=== PATIENT | female | born 1970 | race Caucasian/White ===

== ENCOUNTER 2023-07-26 19:22 | Emergency (ER) | payer OTHER, SELFPAY ==
[2023-07-26] VITALS (40 sets, daily range): BP systolic 90–123; BP diastolic 59–84; PULSE 85–115; RESP 7–23; TEMP 36.8; O2SAT 73–100; BMI 27.3
--- NOTE | 2023-07-26 19:50 | XR_ITS ---
The [address] [address] Patient Name: LORENE RODRIGUEZ MRN: [id number] date: 1970 Sex: F Assigned Patient Location: ER Current Patient Location: ER Accession/Order Number: [id number] Exam Date: 07/26/2023 19:52 Report Date: 07/26/2023 20:14 At the request of: ARLETTE MARKER Procedure: XR chest 1V EXAM: XR chest 1V HISTORY: Shortness of breath. COMPARISON: Chest radiograph dated 03/01/[address] chest dated 02/28/2023. TECHNIQUE: AP erect portable chest radiograph performed. FINDINGS: The trachea is unremarkable. Moderate enlargement of the cardiac silhouette which is more prominent suggesting that there may be an enlarging pericardial effusion. There is a moderate right pleural effusion with associated compressive atelectasis. There is additional airspace disease at both lung bases, right greater than left. There is no pulmonary vascular congestion. There is no pneumothorax or acute osseous abnormality. XR/XR chest 1V IMPRESSION: Moderate enlargement of the cardiac silhouette which is more prominent suggesting that there may be an enlarging pericardial effusion. A CT examination of the chest is recommended. There is a moderate right pleural effusion with associated compressive atelectasis. There is additional airspace disease at both lung bases, right greater than left. Electronically authenticated by: KAREN CHAVEZ Date: 07/26/2023 20:14
--- NOTE | 2023-07-26 19:52 | ED_ITS ---
HPI - SOB/Dyspnea General Chief Complaint: Shortness of Breath/Dyspnea Stated Complaint: DENTAL PAIN, EDEMA Time Seen by Provider: 07/26/23 19:42 Source: patient Mode of arrival: walk-in Limitations: no limitations History of Present Illness HPI Narrative: 52-year-old female with a history of tobacco use, chronic obstructive pulmonary disease and congestive heart failure who is on 80 mg of Lasix daily presents for evaluation of 3 weeks of increasing generalized swelling and shortness of breath. The patient continues to smoke but states that she has only smoked 2 packs of cigarettes in the past month. She has not had a fever. She was recently scheduled to have a cardiac catheterizaation but could not find anybody to drive her to the appointment so it was canceled. She also has several broken teeth on the right and left side of her mandible. She denies any mainor chest pain. She denies any nausea vomiting or diarrhea. She has not recently had a fever. Related Data Home Medications Medication Instructions Recorded Confirmed fluticasone fur. 200 mcg-umeclid 1 inh inhalation Q24H 07/26/23 07/26/23 62.5 mcg-vilant 25 mcg inhalat.powder (Trelegy Ellipta) furosemide 40 mg tablet 40 mg PO Q12H 07/26/23 07/26/23 Allergies Allergy/AdvReac Type Severity Reaction Status Date / Time No Known Drug Allergies Allergy Verified 07/26/23 19:35 Review of Systems ROS Status of ROS 10 or more systems reviewed and unremarkable except as noted in history and below PFSH PFSH Social History Smoking status: Current every day smoker Exam Narrative Exam Narrative: Nurses note and vital signs reviewed; She is afebrile, tachycardic with a pulse of 111, blood pressure is normal but she is hypoxic with pulse ox of 76 percent on room air General: Alert, flushed, nontoxic, dyspneic adult female, she has 3 to four word conversational dyspnea Skin: Legs are erythematous and warm to the touch Head: Normocephalic, atraumatic Eye: Normal conjunctiva, no drainage, EOMI. PERRL Ears, Nose, Mouth, and Throat: oral mucosa is moist. Dentition is generally poor with several broken teeth in the right mandible and left mandible, no sign of necrotizing gingivitis Neck: Positive JVD Cardiovascular: Regular Rate and Rhythm S1S2, No murmurs rubs or gallops appreciated Respiratory: Conversational dyspnea with scattered expiratory wheezing and bibasilar rales Back: non-tender, no CVA tenderness bilaterally to percussion. GI: Normal bowel sounds, no tenderness to palpation, no masses appreciated. No rebound, guarding, or rigidity noted. Musculoskeletal: Pitting edema is present from the feet to the mid back including the mons pubis, abdominal wall and back Neurological: A&O x4, normal speech Psychiatric: Cooperative Constitutional Vital Signs, click to edit/add: Last Vital Signs Temp 98.2 F 07/26/23 19:26 Pulse 77 07/27/23 06:10 Resp 12 07/27/23 06:10 BP 95/59 07/27/23 05:30 Pulse Ox 100 07/27/23 06:10 O2 Del Method Room Air 07/26/23 19:45 O2 Flow Rate 4 07/26/23 21:52 Course Vital Signs Vital signs: Vital Signs Temperature 98.2 F 07/26/23 19:26 Pulse Rate 111 H 07/26/23 19:26 Respiratory Rate 16 07/26/23 19:26 Blood Pressure 101/70 07/26/23 19:26 Pulse Oximetry 76 L 07/26/23 19:26 Oxygen Delivery Method Room Air 07/26/23 19:26 Temperature 98.2 F 07/26/23 19:26 Pulse Rate 77 07/27/23 06:10 Respiratory Rate 12 07/27/23 06:10 Blood Pressure 95/59 07/27/23 05:30 Pulse Oximetry 100 07/27/23 06:10 Oxygen Delivery Method Room Air 07/26/23 19:45 Oxygen Delivery Flow Rate 4 07/26/23 21:52 MDM - SOB/Dyspnea MDM Narrative Medical decision making narrative: This 52-year-old female with a history of congestive heart failure and chronic obstructive pulmonary disease who does wear home oxygen on occasion dense for evaluation of 3 weeks of increasing shortness of breath and fluid retention. She has pitting edema from her feet to her mid back. She has JVD. She denies any chest pain. On arrival she was noted really tachycardic with pulse ox in the 70s. She explained to the nurses that she does have oxygen that she wears at home but does not have any portable oxygen. She was taken to room 10 and placed on a monitoring analyst. EKG was a sinus ta chycardia with an incomplete right bundle-branch block. She was noted to have JVD as well as faint bibasilar rales. An IV was established and she was given 40 mg of IV Lasix. Routine labs were ordered and are reviewed. She has a normal white count and hemoglobin. Normal troponin. Her BUN and creatinine are mildly elevated at 38 and 1.52. Her BNP was elevated at 7753. COVID 19 testing was negative. Chest x-ray showed some compressive atelectasis and pleural effusion as well as cardiomegaly with concern for a developing pericardial effusion with recommendation for a CT scan of the chest. CT scan of the chest confirms the diagnosis of pericardial effusion. The patient has remained hemodynamically stable in the emergency department. She was given a 500 mL IV fluid bolus despite the fluid overload due to the diagnosis of pericardial effusion. The patient requests to be transferred to [facility] . The case was discussed with Dr Coello, hospitalist who spoke to the cut press operator who suspects she will need a pericariocentesis that can be performed at [facility] and she is accepted for transfer. There was an extended period of time waiting for transportation for this patient. She has been monitored overnight and has been sleeping and comfortable without hypoxia or complaint of pain. Her blood pressure has remained stable. She was made aware of the delay in transportation and was understanding of this fact. Medical Records Medical records narrative: [place] [address] CT Scan Report Signed Patient: LORENE RODRIGUEZ MR#: [id number] : 1970 Acct:[id number] Age/Sex: 52 / F ADM Date: 07/26/23 Loc: ER Attending Dr: Ordering Physician: Taty Telles Date of Service: 07/26/23 Procedure(s): CT chest w con Accession Number(s): [id number] cc: Physician,Non-Staff Mercedes~ The [address] [address] Patient Name: LORENE RODRIGUEZ MRN: [id number] date: 1970 Sex: F Assigned Patient Location: ER Current Patient Location: ER Accession/Order Number: [id number] Exam Date: 07/26/2023 20:50 Report Date: 07/26/2023 21:51 At the request of: TATY MARI Procedure: CT chest w con EXAM: CT chest w con HISTORY: pericardial effusion COMPARISON: Multiple priors, most recent Chest x-ray 07/26/2023, CT chest 02/28/2023 TECHNIQUE: Multiple axial views CT chest after administration of IV contrast. Coronal sagittal reformats. FINDINGS: Diffuse pericardial effusion measuring up to 2.4 cm thick at the right pericardium and 2.1 cm thick at the left posterior pericardium. Cardiomegaly with left and right coronary artery calcifications. Markedly dilated right atrium and right ventricle. Small right pleural effusion with adjacent right lower lobe lung consolidation. Central airway is patent. Extensive bilateral centrilobular emphysema. Mild tree-in-bud nodular lung infiltrates of the bilateral lower lobes. Small hiatal hernia. Partially visualized abdominal ascites. No acute bony abnormality. CT/CT chest w con IMPRESSION: Diffuse pericardial effusion measuring up to 2.4 cm thick at the right pericardium and 2.1 cm thick at the left posterior pericardium. Recommend close clinical attention for cardiac dysfunction. Cardiomegaly with left and right coronary artery calcifications. Markedly dilated right atrium and right ventricle. Recommend close clinical attention for congestive heart failure. Small right pleural effusion with adjacent right lower lobe lung consolidation. The lung consolidation likely reflecting compressive atelectasis, less likely pneumonitis. Correlate clinically. Extensive bilateral centrilobular emphysema. Mild tree-in-bud nodular lung infiltrates of the bilateral lower lobes, similar to CT 02/28/2023. Electronically authenticated by: NAFISA KAYE Date: 07/26/2023 21:51 Lab Data Labs: Lab Results 07/26/23 07/26/23 Range/Units 19:39 20:15 WBC 9.1 (4.0-11.0) 10^3/uL RBC 5.84 H (4.20-5.40) 10^6/uL Hgb 14.8 (12.0-16.0) g/dL Hct 49.3 H (36.0-48.0) % MCV 84.4 (81.0-99.0) fL MCH 25.3 L (26.7-34.0) pg MCHC 30.0 (29.9-35.2) g/dL RDW 25.3 H (11.0-15.0) % Plt Count 169 (150-450) 10^3/uL MPV 9.6 (9.5-13.5) fL Neut % (Auto) 62.8 (43.0-75.0) % Lymph % (Auto) 22.8 (20.5-60.0) % [place] % (Auto) 13.0 H (1.7-12.0) % Eos % (Auto) 0.4 L (0.9-7.0) % Baso % (Auto) 0.8 (0.2-2.0) % Neut # (Auto) 5.7 (1.4-6.5) 10^3/uL Lymph # (Auto) 2.1 (1.2-3.8) 10^3/uL [place] # (Auto) 1.2 H (0.3-0.8) 10^3/uL Eos # (Auto) 0.0 (0.0-0.7) 10^3/uL Baso # (Auto) 0.1 (0.0-0.1) 10^3/uL Abs Immat Gran (auto) 0.02 (0.00-0.03) 10^3/uL Imm/Tot Granulo (auto) 0.2 (0.0-0.5) % Sodium 132 L (136-145) mmol/L Potassium 2.9 L* (3.5-5.1) mmol/L Chloride 93 L (98-107) mmol/L Carbon Dioxide 36.8 H (21.0-32.0) mmol/L Anion Gap 5.1 BUN 38.0 H (7.0-18.0) mg/dL Creatinine 1.52 H (0.55-1.02) mg/dL Est GFR ( Amer) 44 L (>=60) Est GFR (Non-Af Amer) 36 L (>=60) BUN/Creatinine Ratio 25.0 Glucose 84 (74-106) mg/dL Calcium 8.3 L (8.5-10.1) mg/dL Total Bilirubin 2.0 H (0.2-1.0) mg/dL AST 26 (15-37) U/L ALT 16 (14-59) U/L Alkaline Phosphatase 98 (46-116) U/L Troponin I High Sens 37.5 (4.0-51.3) pg/mL NT-Pro-B Natriuret Pep 7753.0 H* (<=900.0) pg/mL Total Protein 7.0 (6.4-8.2) g/dL Albumin 2.8 L (3.4-5.0) g/dL Globulin 4.2 g/dL Albumin/Globulin Ratio 0.7 SARS-CoV-2 (PCR) Negative (NEGATIVE) ECG Data Attestation: I personally reviewed and interpreted this ECG as follows: (Sinus tachycardia at 102 beats for minute, incomplete right bundle branch block, nonspecific ST changes, no acute ST segment elevation or T-wave inversion) Critical Care Time Critical Care Time Total Critical Care Time: 35 Discharge Plan Discharge Chief Complaint: Shortness of Breath/Dyspnea Clinical Impression: Pericardial effusion, Pleural effusion, Fluid overload Patient Disposition: [facility] Time of Disposition Decision: 23:20 Discharge Location: [facility] Condition: Serious
[2023-07-26 20:00] LABS: Basophils Absolute Auto 0.1 10^3/uL (0.0-0.1); Basophils Percent Auto 0.8 % (0.2-2.0); Eosinophils Percent Auto 0.4 % (0.9-7.0); Hematocrit 49.3 % (36.0-48.0); Hemoglobin 14.8 g/dL (12.0-16.0); Immature Granulocytes Abs Auto 0.02 10^3/uL (0.00-0.03); Immature Granulocytes Pct Auto 0.2 % (0.0-0.5); Lymphocytes Absolute Auto 2.1 10^3/uL (1.2-3.8); Lymphocytes Percent Auto 22.8 % (20.5-60.0); Mean Corpuscular Hemoglobin 25.3 pg (26.7-34.0); Mean Corpuscular Volume 84.4 fL (81.0-99.0); Mean Platelet Volume 9.6 fL (9.5-13.5); Monocytes Absolute Auto 1.2 10^3/uL (0.3-0.8); Neutrophils Absolute Auto 5.7 10^3/uL (1.4-6.5); Neutrophils Percent Auto 62.8 % (43.0-75.0); Platelet Count 169 10^3/uL (150-450); Red Blood Count 5.84 10^6/uL (4.20-5.40); Red Cell Distribution Width 25.3 % (11.0-15.0); White Blood Count 9.1 10^3/uL (4.0-11.0)
--- NOTE | 2023-07-26 20:06 | PC.NURSE ---
pt presents to ED because patient states for the last 3 1/2 week she has had increased bilateral lower extremity swelling that has gone up into patients abdomen. pt has hx of COPD and CHF, pt wears 2 1/2 liters nasal cannula at home as needed but patient states that she has been wearing it more frequent than normal. patient states that she currently has sob as well. pt drove herself to the ER, pt states that she does have a portable oxygen machine but is out of oxygen canisters and doesn't have a pcp currently. pt states that she does take 80mg of lasix a day and has been taking as prescribed. pt states that she had a 3 month filled supply of the medication and that is how she has some left. on arrival to ED pt's oxygen is 76% on room air, pt placed on 4 liters nasal cannula and now satting at 95%. denies chest pain. pt was suppose to have a heart catheterization done a year ago but never followed up because she didn't have anyone to drive her from the appointment. n/v for last couple weeks. pt also presents to ED because patient has 2 broken teeth on bottom right side of mouth and 1 broken tooth on lower left side of mouth that happened 3 days ago.
[2023-07-26 20:26] LABS: Alanine Aminotransferase 16 U/L (14-59); Albumin Globulin Ratio 0.7; Albumin Level 2.8 g/dL (3.4-5.0); Alkaline Phosphatase 98 U/L (46-116); Anion Gap 5.1; Aspartate Amino Transferase 26 U/L (15-37); Calcium 8.3 mg/dL (8.5-10.1); Carbon Dioxide 36.8 mmol/L (21.0-32.0); Chloride 93 mmol/L (98-107); Estimated GFR (African America 44 (>=60); Estimated GFR (Non-African Ame 36 (>=60); Globulin 4.2 g/dL; Glucose 84 mg/dL (74-106); Sodium 132 mmol/L (136-145); Troponin I High Sensitivity 37.5 pg/mL (4.0-51.3)
[2023-07-26 20:30] LABS: Potassium 2.9 mmol/L (3.5-5.1)
[2023-07-26 20:33] LABS: SARS-CoV-2 Ag NEGATIVE (NEGATIVE)
--- NOTE | 2023-07-26 20:40 | CT_ITS ---
[address] [address] Patient Name: LORENE RODRIGUEZ MRN: [id number] date: 1970 Sex: F Assigned Patient Location: ER Current Patient Location: ER Accession/Order Number: [id number] Exam Date: 07/26/2023 20:50 Report Date: 07/26/2023 21:51 At the request of: ARLETTE MARKER Procedure: CT chest w con EXAM: CT chest w con HISTORY: pericardial effusion COMPARISON: Multiple priors, most recent Chest x-ray 07/26/2023, CT chest 02/28/2023 TECHNIQUE: Multiple axial views CT chest after administration of IV contrast. Coronal sagittal reformats. FINDINGS: Diffuse pericardial effusion measuring up to 2.4 cm thick at the right pericardium and 2.1 cm thick at the left posterior pericardium. Cardiomegaly with left and right coronary artery calcifications. Markedly dilated right atrium and right ventricle. Small right pleural effusion with adjacent right lower lobe lung consolidation. Central airway is patent. Extensive bilateral centrilobular emphysema. Mild tree-in-bud nodular lung infiltrates of the bilateral lower lobes. Small hiatal hernia. Partially visualized abdominal ascites. No acute bony abnormality. CT/CT chest w con IMPRESSION: Diffuse pericardial effusion measuring up to 2.4 cm thick at the right pericardium and 2.1 cm thick at the left posterior pericardium. Recommend close clinical attention for cardiac dysfunction. Cardiomegaly with left and right coronary artery calcifications. Markedly dilated right atrium and right ventricle. Recommend close clinical attention for congestive heart failure. Small right pleural effusion with adjacent right lower lobe lung consolidation. The lung consolidation likely reflecting compressive atelectasis, less likely pneumonitis. Correlate clinically. Extensive bilateral centrilobular emphysema. Mild tree-in-bud nodular lung infiltrates of the bilateral lower lobes, similar to CT 02/28/2023. Electronically authenticated by: NAFISA KAYE Date: 07/26/2023 21:51
[2023-07-26] MEDS: POTASSIUM CHLORIDE 10 MEQ ER TABLET 40 MEQ PO (21:02)
[2023-07-26] MEDS: POTASSIUM CHLORIDE 10 MEQ IN WATER 100 ML PIGGYBACK IV (21:03)
[2023-07-26] MEDS: FUROSEMIDE 40 MG/4 ML VIAL IVP (21:03)
--- NOTE | 2023-07-26 21:55 | ECG_ITS ---
The [facility] Test Date: 2023-07-26 Pat Name: LORENE RODRIGUEZ Department: Room: - Gender: Female Residential Monitor: : 1970 Requested By: [id number] Order Number: [id number] Reading MD: MICHELE GRAY Measurements Intervals [place] Rate: 102 P: 81 AL: 138 QRS: 168 QRSD: 102 T: 32 QT: 312 QTc: 371 Interpretive Statements 1120 Sinus tachycardia 2440 Incomplete right bundle branch block [address] depression 5130 Right ventricular hypertrophy 8003 Consistent with pulmonary disease 9150 abnormal ECG No previous ECG available for comparison Electronically Signed On 07-27-2023 7:10:10 EDT by MICHELE GRAY
[2023-07-26] MEDS: 0.9 % SODIUM CHLORIDE 500 ML IV (22:23)
[2023-07-27] VITALS (61 sets, daily range): BP systolic 80–124; BP diastolic 51–93; PULSE 71–98; RESP 8–21; O2SAT 94–100
--- NOTE | 2023-07-27 08:28 | ED_ITS ---
HPI - General Adult General Chief complaint: Shortness of Breath/Dyspnea Stated complaint: DENTAL PAIN, EDEMA Time Seen by Provider: 07/26/23 19:42 Source: patient Mode of arrival: walk-in Limitations: no limitations History of Present Illness HPI narrative: the patient was initially seen by Dr. Telles and signed out to me after discussing the case with her thoroughly. Please see her full history and physical exam. Related Data Home Medications Medication Instructions Recorded Confirmed fluticasone fur. 200 mcg-umeclid 1 inh inhalation Q24H 07/26/23 07/26/23 62.5 mcg-vilant 25 mcg inhalat.powder (Trelegy Ellipta) furosemide 40 mg tablet 40 mg PO Q12H 07/26/23 07/26/23 Allergies Allergy/AdvReac Type Severity Reaction Status Date / Time No Known Drug Allergies Allergy Verified 07/26/23 19:35 PFSH PFSH Social History Smoking status: Current every day smoker Exam Constitutional Vital Signs, click to edit/add: Last Vital Signs Temp 98.2 F 07/26/23 19:26 Pulse 75 07/27/23 07:50 Resp 19 07/27/23 07:50 BP 109/69 07/27/23 07:30 Pulse Ox 98 07/27/23 07:50 O2 Del Method Room Air 07/26/23 19:45 O2 Flow Rate 4 07/26/23 21:52 Course Vital Signs Vital signs: Vital Signs Temperature 98.2 F 07/26/23 19:26 Pulse Rate 111 H 07/26/23 19:26 Respiratory Rate 16 07/26/23 19:26 Blood Pressure 101/70 07/26/23 19:26 Pulse Oximetry 76 L 07/26/23 19:26 Oxygen Delivery Method Room Air 07/26/23 19:26 Temperature 98.2 F 07/26/23 19:26 Pulse Rate 75 07/27/23 07:50 Respiratory Rate 19 07/27/23 07:50 Blood Pressure 109/69 07/27/23 07:30 Pulse Oximetry 98 07/27/23 07:50 Oxygen Delivery Method Room Air 07/26/23 19:45 Oxygen Delivery Flow Rate 4 07/26/23 21:52 Medical Decision Making MDM Narrative Medical decision making narrative: the patient's workup here indicates. Pleural effusion. Dr. Telles had spoken with the patient's at [facility] an the patient had been accepted there. We were awaiting transportation and the patient decided to leave our emergency department. She tells us that she is going to go to that hospital and drive herself. Both myself and the nurse tried to convince her to stay because the ambulance was going to be here in about thirty minutes but she refused to do so. The patient is fully able to make medical decisions for herself and is signing out against medical advice. Lab Data Labs: Lab Results 07/26/23 07/26/23 Range/Units 19:39 20:15 WBC 9.1 (4.0-11.0) 10^3/uL RBC 5.84 H (4.20-5.40) 10^6/uL Hgb 14.8 (12.0-16.0) g/dL Hct 49.3 H (36.0-48.0) % MCV 84.4 (81.0-99.0) fL MCH 25.3 L (26.7-34.0) pg MCHC 30.0 (29.9-35.2) g/dL RDW 25.3 H (11.0-15.0) % Plt Count 169 (150-450) 10^3/uL MPV 9.6 (9.5-13.5) fL Neut % (Auto) 62.8 (43.0-75.0) % Lymph % (Auto) 22.8 (20.5-60.0) % [place] % (Auto) 13.0 H (1.7-12.0) % Eos % (Auto) 0.4 L (0.9-7.0) % Baso % (Auto) 0.8 (0.2-2.0) % Neut # (Auto) 5.7 (1.4-6.5) 10^3/uL Lymph # (Auto) 2.1 (1.2-3.8) 10^3/uL Iron # (Auto) 1.2 H (0.3-0.8) 10^3/uL Eos # (Auto) 0.0 (0.0-0.7) 10^3/uL Baso # (Auto) 0.1 (0.0-0.1) 10^3/uL Abs Immat Gran (auto) 0.02 (0.00-0.03) 10^3/uL Imm/Tot Granulo (auto) 0.2 (0.0-0.5) % Sodium 132 L (136-145) mmol/L Potassium 2.9 L* (3.5-5.1) mmol/L Chloride 93 L (98-107) mmol/L Carbon Dioxide 36.8 H (21.0-32.0) mmol/L Anion Gap 5.1 BUN 38.0 H (7.0-18.0) mg/dL Creatinine 1.52 H (0.55-1.02) mg/dL Est GFR ( Amer) 44 L (>=60) Est GFR (Non-Af Amer) 36 L (>=60) BUN/Creatinine Ratio 25.0 Glucose 84 (74-106) mg/dL Calcium 8.3 L (8.5-10.1) mg/dL Total Bilirubin 2.0 H (0.2-1.0) mg/dL AST 26 (15-37) U/L ALT 16 (14-59) U/L Alkaline Phosphatase 98 (46-116) U/L Troponin I High Sens 37.5 (4.0-51.3) pg/mL NT-Pro-B Natriuret Pep 7753.0 H* (<=900.0) pg/mL Total Protein 7.0 (6.4-8.2) g/dL Albumin 2.8 L (3.4-5.0) g/dL Globulin 4.2 g/dL Albumin/Globulin Ratio 0.7 SARS-CoV-2 (PCR) Negative (NEGATIVE) Discharge Plan Discharge Chief Complaint: Shortness of Breath/Dyspnea Clinical Impression: Pericardial effusion, Pleural effusion, Fluid overload Patient Disposition: Left Against Medical Advice Time of Disposition Decision: 23:20 Condition: Serious Mode of Transportation: Private Vehicle Prescriptions / Home Meds: No Action furosemide 40 mg tablet 40 mg PO Q12H Trelegy Ellipta 200-62.5-25 mcg blister with device 1 inh INHALATION Q24H Stand Alone Forms: Portal Instructions Referrals: Physician,Non-Staff, MD [Primary Care Provider] - 1 week Discharge Date/Time: 07/27/23 08:21
[2023-07-27 14:46] LABS: SARS-CoV-2 NAA NOT DETECTED (NOT DETECTE)
== END 2023-07-27 08:21 | disposition left against medical advice (07) ==
PROVIDERS: Emergency Provider Emergency Medicine
DX: I31.39 Other pericardial effusion (noninflammatory) (principal); I50.9 Heart failure, unspecified; J44.9 Chronic obstructive pulmonary disease, unspecified; F17.210 Nicotine dependence, cigarettes, uncomplicated; Z79.899 Other long term (current) drug therapy; Z99.81 Dependence on supplemental oxygen; I45.10 Unspecified right bundle-branch block; Z20.822 Contact with and (suspected) exposure to COVID-19
CPT/HCPCS: 36415; 71045; 71260; 80053; 83880; 84484; 85025; 87635; 87811; 93005; 96374; 96375; 99285; Q9967